=== PATIENT | female | born 1985 | race Caucasian/White ===

== ENCOUNTER → 2017-07-26 12:48 | Outpatient (CLI) | payer MEDICAID ==
[2011-03-31 06:02] VITALS: BMI 43.8
[~2017-07-26 12:48] MED LIST: ULTRACET TABLET1 TAB PO; [UNRECOGNIZED DRUG - REMARK]
== END | disposition home or self-care (01) ==
LOC: D.MRI 12:48
DX: R20.0 Anesthesia of skin (principal)

== ENCOUNTER 2017-09-08 02:58 | Emergency (ER) | payer MEDICAID ==
[~2017-09-08] VITALS: Ht 165.1 cm; Wt 135.5 kg
[2017-09-08 03:14] VITALS: Ht 165.1 cm; Wt 135.5 kg
[2017-09-08] MEDS ORDERED: [UNRECOGNIZED DRUG - REMARK] (03:16)
[2017-09-08 03:52] LABS: BASOPHILS 0.2 % (0-2); EOSINOPHILS 1.8 % (0-7); HEMATOCRIT 38.5 % (36.0-48.0); HEMOGLOBIN 12.4 g/dL (12-16); IMMATURE GRANULOCYTES 0.2 % (0-5); LYMPHOCYTES 22.2 % (15-50); MCH 25.7 pg (26.0-34.0); MCHC 32.2 g/dL (31.0-37.0); MCV 79.9 fL (80.0-100.0); MEAN PLATELET VOLUME 10.4 fL (7.4-10.4); MONOCYTES 7.2 % (2-11); NEUTROPHILS 68.4 % (40-80); RBC 4.82 10x6/uL (4.00-5.40); RDW 14.3 % (11.5-14.5); WBC 9.7 10x3/uL (4.8-10.8)
[2017-09-08 03:54] LABS: PLATELET COUNT 277 10x3/uL (130-400)
[2017-09-08 03:59] LABS: ALBUMIN 3.3 g/dL (3.4-5.0); ALKALINE PHOSPHATASE 85 U/L (46-116); ALT (SGPT) 55 U/L (10-68); BILIRUBIN - TOTAL 0.56 mg/dL (0.2-1.3); CALC OSMOLALITY 273 mosm/kg (275-300); CALCIUM 8.9 mg/dL (8.5-10.1); CARBON DIOXIDE 26.9 mmol/L (21.0-32.0); CHLORIDE - SERUM 103 mmol/L (98-107); CREATININE - SERUM 0.7 mg/dL (0.6-1.3); GLUCOSE 117 mg/dL (74-106); POTASSIUM - SERUM 4.8 mmol/L (3.5-5.1); PROTEIN - SERUM 7.9 g/dL (6.4-8.2); SODIUM 137 mmol/L (136-145); UREA NITROGEN 11 mg/dL (7-18); eGFR NON AFRICAN AMERICAN > 90 mL/min (90-120)
[2017-09-08 04:00] LABS: APTT 29.8 SECONDS (22.8-39.4); INR 1.1 (0.85-1.17); PROTIME 13.8 SECONDS (11.6-15.0)
[2017-09-08 04:10] LABS: CKMB 0.4 U/L (0.0-3.6); CREATINE KINASE 99 UL (21-215)
[2017-09-08 04:22] LABS: PRO BNP 8 pg/mL (0-125); TROPONIN-I < 0.017 ng/mL (0.000-0.060)
[2017-09-08] MEDS ORDERED: ULTRACET TABLET1 TAB PO (04:45)
[2017-09-08 05:39] VITALS: BP 105/88
== END 2017-09-08 05:39 | disposition home or self-care (01) ==
LOC: D.ER 02:58
PROVIDERS: Emergency Medicine
DX: R07.9 Chest pain, unspecified (principal)